=== PATIENT | female | born 1995 | race Caucasian/White ===

== ENCOUNTER 2021-05-18 10:01 | Emergency (ER) | payer BC ==
[2021-05-18] MEDS ORDERED: Ibuprofen 800 MG TAB ONE (11:13)
== END 2021-05-18 11:50 | disposition home or self-care (01) ==
LOC: ERS 10:01
DX: S93.401A Sprain of unspecified ligament of right ankle, initial encounter (principal); S80.212A Abrasion, left knee, initial encounter; M25.572 Pain in left ankle and joints of left foot; W01.0XXA Fall on same level from slipping, tripping and stumbling without subsequent striking against object, initial encounter